=== PATIENT | male | born 1950 | race Caucasian/White ===

== ENCOUNTER 2025-04-12 17:45 | Emergency (ER) | payer MEDICARE, BC, SELFPAY ==
[2025-04-12] VITALS (8 sets, daily range): BP systolic 149–231; BP diastolic 87–118; PULSE 61–71; RESP 16–20; TEMP 36.6; O2SAT 93–97; BMI 26.5
--- OUTSIDE RECORDS SUMMARY | 2025-04-12 17:47 | XMS_ITS | Data Portability ---
Author Organization [place] [facility] Address [address] [place] [address] Assessment No assessment recorded. Plan of Treatment Reminders Order Date Submit Date Provider Last Modified By Organization Details Last Modified Time Details Appointments None recorded. Lab urinalysis, dipstick 2020 021 [facility] [address] [facility] [address], [place], [address], 12:17:54 Referral None recorded. Procedures None recorded. Surgeries cystolithol apaxy (SURG) 2020 021 [facility] Not available 11:42:13 Imaging None recorded. Medication Orders tamsulosin 0.4 mg capsule 2020 021 [facility] [address] [place] [address], [id number], 12:17:54 Patient TargetsNo targets recorded. Patient InstructionsNo instructions recorded. Reason for Referral None Reported. Results Created Date Observation Date Name Description Value Unit Range Abnormal Flag Note LastModifiedBy Organization Detail LastModifiedTime 07/21/2007/21/2021 urina lysis , dipst ick pH-Status 5.5 Not Available [facility] [address], [place], [address], 07/21/2021 11:37:26 07/21/20 21 07/21/2021 urina lysis , dipst ick Blood-Status Small Not Available [facility] [address], [place], [address], 07/21/2021 11:37:26 09/17/20 21 09/01/2021 measu remen t of post- voidi ng resid ual urine and/o r bladd er capac ity (PROC ) No observ ation record ed. [email or web address] Not Available 03/2021 10:28:11 Result Notes None recorded. Procedures Surgical History Date Name Laterality Status Provider Name and Address Organization Details Recorded Time 08/06/20 21 CYSTOLITHOLAPAXY (SURG) completed Cielo Henry [facility] 08/10/2021 11:42:19 12/18/19 21 Colonoscopy completed Aniya Hare [facility] 08/20/2021 11:27:24 Imaging Results None recorded. Procedure Notes None recorded. Medical Equipment None Reported. Allergies No known drug allergies Medications Name Sig Start Date Stop Date Status Note LastModified by Organization Details LastModified Time atorvastatin 20 mg tablet TAKE 1 TABLET BY MOUTH AT BEDTIME active Not Available Not Available No t Available chlorthalidone 25 mg tablet TAKE 1 2 (ONE HALF) TABLET BY MOUTH ONCE DAILY active Not Available Not Available No t Available sulfamethoxazol e 800 mg-trimethoprim 160 mg tablet Take 1 tablet every 12 hours by oral route. active Not Available Not Available No t Available tamsulosin 0.4 mg capsule TAKE 1 CAPSULE BY MOUTH ONCE DAILY active Not Available Not Available No t Available cephalexin 500 mg capsule TAKE 1 CAPSULE BY MOUTH TWICE DAILY FOR 7 DAYS active Not Available Not Available No t Available lisinopril 10 mg tablet TAKE 1 TABLET BY MOUTH ONCE DAILY active Not Available Not Available No t Available hydrochlorothia zide 25 mg tablet active Not Available Not Available Not Available diazepam 10 mg tablet Take 1 tablet by oral route as directed . active Not Available Not Available No t Available Vitals Date Recorded Body height Body mass index (BMI) Body weight Respiratory rate Provider Name and Address Organization Details Last Updated DateTime 07/21/2021 167.64 cm 25.8 kg/m2 39721.78 g 16 /min Josefina Byrd [facility] 07/21/2021 11:34:35 Social History Question Answer Notes LastModified by Organizat ion Details LastModified Time Tobacco Smoking Status Never Smoker Josefina Byrd [facility] 07/21/2021 11:35:59 What Was The Date Of Your Most Recent Tobacco Screening? 07/21/2021 lexus Information not available 07/21/2021 Sex: Unknown Functional Status None recorded. Mental Status None recorded. Family History Nothing Reported Notes:cardiac - father Medical History Condition Response High Blood Pressure Y Kidney Stones Y High Cholesterol Y Past Encounters Encounter ID Performer Location Encounter Start Date Encounter Closed Date Diagnosis/Indication Diagnosis SNOMED-CT Code Diagnosis ICD10 Code Diagnosis Note [id number] Gokul Viera MD [facility] [address] [facility] [address] [place] [address] 07/21/2021 10:32:37 07/21/2021 12:21:25 Urinary bladder stone 76031208 N21.0 These are likely due to BPH. We discussed laser litho of the bladder stones.We also discussed a TURP at the same time but will hold off for now and try medical management first.They have a trip to [facility] for mid August. Kidney stone 33101240 N2 0.0 To prevent stones from forming or enlarging it is recommende d to: 1) increase fluids so that urine output is at least 1.5 liters every 24 hours. 2) Add 1-2 ox of lemon juice to water daily. 3) Decrease dietary salt. Health Concerns Section Related Observation LastModified by Organization Detai ls LastModified Time None Recorded Concern Status LastModified by Organization Details LastModified Time None Recorded Advance Directives Directive None Recorded Payers Insurance Date Sequence Insurance Name Policy Number Policy Stover Covered Member ID Stover Member ID Guarantor Name 08/20/2021 1 [place] MEDICARE COST [id number] Danny Hammonds [id number] Danny Hammonds Notes Date Note Type Note Provider Name and Address Organization Details Recorded Time 07/21/2021 text/html He had seen Dr Huizar 5 years ago for kidney stones.Currently, he is having intermittent gross hematuria. This started 6 weeks ago. No pain but some sense of fullness. He has not had any prostate surgery. He has some slowness to his stream. Nocturia 2-3x. Gokul Viera MD [address] [facility],[address], [place], [address], [facility] 07/21/2021 12:18:29
--- OUTSIDE RECORDS SUMMARY | 2025-04-12 17:47 | XMS_ITS | Clinical Summary ---
Author Organization [facility] Address [address] [place] [address] Care Team Providers Care Filter Pulp Washer Name Role Phone Rangel Westfall MD Primary Care Provider [phone] Allergies No known active allergies Medications MULTIVITAMIN TAB take 1 tablet by oral route once daily with food 0 02/24/20 09 Active GLUCOSAMINE-CHONDROITIN 500 MG-400 MG CAP 2 tabs daily 0 02/24/20 09 Active tamsulosin 0.4 mg capsuleIndications:BPH without urinary obstruction Take 1 Capsule (0.4 mg) by mouth once daily after a meal. 90 Capsule 4 10/29/20 24 Active lisinopriL (PRINIVIL; ZESTRIL) 10 mg tabletIndications:HTN (hypertension) Take 1 Tablet (10 mg) by mouth once daily in the evening. 90 Tablet 4 10/29/20 24 Active atorvastatin 20 mg tabletIndications:Pure hypercholesterolemia TAKE 1 TABLET(20 MG) BY MOUTH AT BEDTIME 90 Tablet 02/01/20 25 Active chlorthalidone 25 mg tabletIndications:HTN (hypertension) TAKE 1/2 TABLET(12.5 MG) BY MOUTH DAILY IN THE MORNING 45 Tablet 02/01/20 25 Active Active Problems Problem Noted Date Diagnosed Date Sensorineural hearing loss, bilateral 05/06/2024 Tinnitus of both ears 05/01/2017 Kidney stone, L hydronephrosis 09/24/2016 Adenomatous colon polyp 11/03/2015 Overview (12/18/2020): Colonoscopy 10/2015 polyp, diverticulosis repeat in 5 years Colonoscopy 12/2020 severe diverticulosis, repeat in 10 years With propofol or CT colonography Vitamin D deficiency 04/12/2013 Arthritis of knee, left 07/26/2012 Anxiety state, unspecified 07/25/2012 HTN (hypertension) 12/26/2011 Special screening for malignant neoplasm of pros nunez 01/25/2008 Pure hypercholesterolemia 01/23/2008 Overview (02/23/2009): Elevated Triglycerides. Resolved Problems Problem Noted Date Diagnosed Date Resolved Date Personal history of other ma lignant neoplasm of skin 01/23/2008 01/25/2008 Overview (01/23/2008): Behind right ear in 1998 Encounters Date Type Department Care Team Description 01/28/2025 [facility] [address] [place] [address] Votel, Eduardo Alberto MD Refill Request (Atorvastatin, Chlorthalidone) from Last 3 Months Immunizations Immunization Administration Dates Next Due Pneumococcal Poly,23-Valent (Pneumovax) 05/04/20 18 Pneumococcal conj 13-Valent (Prevnar 13) 017 Td (Age >=7 Years) 08/23/2006 Td, Preservative Free (age >= 7 Years) 6 Tdap 08/27/2022,01/22/2013 Family History Medical History Relation Name Comments Diabetes Father 60S Heart Disease Father cabg 76 Hyperlipidemia Father Other Father of old age at 84 Allergies Mother Hypertension Mother Restless legs syndrome Mother Arthritis Sister sp knee rep Relation Name Status Comments Father Mother Alive Sister Alive Social History Tobacco Use Types Packs/Day Years Used Date Smoking Tobacco: Never Passive Smoke Exposure: Never Smokeless Tobacco: Never Tobacco Cessation:Counseling Given: Yes Alcohol Use Standard Drinks/Week Comments Not Currently 0 (1 standard drink = 0.6 oz pur e alcohol) PHQ-2 Answer Date Recorded PHQ-2 TOTAL SCORE 0 10/29/2024 Social Connections Answer Date Recorded Do you often feel lonely or isolated from those around you? 0 03/14/2024 Financial Resource Strain Answer Date R ecorded Difficulty of Paying Living Expenses 3 03/14/2024 Difficulty of Paying Living Expenses Not on file 03/14/2024 Food Insecurity Answer Date Recorded Do you worry your food will run out before you are able to buy more? 1 03/14/2024 Transportation Needs Answer Date Record ed Does lack of transportation keep you from medica l appointments? 1 03/14/2024 Does lack of transportation keep you from work, meetings or getting things that you need? 1 03/14/2024 Housing Stability Answer Date Recorded What is your housing situation today? 1 03/14/2024 Utilities Answer Date Recorded Do you have trouble paying f or utilities (for example, heat, electricity, water, phone)? 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 Not on file Not on file retired Not on file Not on file Not on file Obstetrics History Last Filed Vital Signs Vital Sign Reading Time Taken Comments Blood Pressure 143/82 10/29/2024 4:43 PM [employer] PLANT SUPER[employer]OR Pulse 72 10/29/2024 4:19 PM [employer] PLANT SUPER[employer]OR Temperature 36.9 C (98.4 F) 10/29/2024 4:19 PM [employer] SU[employer]OR Respiratory Rate 18 08/06/2021 6:45 PM CDT Oxygen Saturation 98% 10/29/2024 4:19 PM [employer] SUPER[employer]OR Inhaled Oxygen Concentration - - Weight 76.6 kg (168 lb 12.8 oz) 10/29/2024 4:19 PM [employer] PL[employer] SUPER[employer]OR Height 166 cm (5' 5.35) 10/29/2024 4:19 PM [employer] PLANT SUPER[employer]OR Body Mass Index 27.79 10/29/2024 4:19 PM [employer] SU[employer]OR Plan of Treatment Health Maintenance Due Date Last Done Comments Zoster (shingles) series for age 50+ (1 of 2) 2001 COVID-19 vaccine series ( season) 2024 Influenza Vaccine (Season Ended) 2025 BMI (ht and wt on same day) for age 18+ 10/29/2025 10/29/2024, 10/24/2023, 10/21/2022, Additional history exists Depression screening for age 12+ 10/29/2025 10/29/2024, 10/24/2023, 10/21/2022, Additional history exists Medicare Wellness for age 65+ 10/30/2025 10/29/2024, 10/24/2023, 10/21/2022, Additional history exists RSV vaccine for adults or (1 - 1-dose 75+ series) 2026 Lipids for age 45-75 11/08/2029 11/08/2024, 11/10/2023, 11/10/2023, Additional history exists Colonoscopy through age 75 12/18/203012/18, 12/18/2020, 12/18/2020, Additional history exists Tetanus booster 08/27/2032 08/27/2022, 01/11, 08/23/2006, Additional history exists Pneumococcal series for age 50+ Completed 05/04/2018, 05/01/2017 Hepatitis C screening for age 18-79 Completed 10/20/2020 Tdap Completed 08/27/2022, 01/22/2013 Hepatitis B series for 19+ Aged Out N o longer eligible based on patient's age to complete this topic Procedures Procedure Name Priority Date/Time Associated Diagnosis Comments LIPID PANEL W REFLEX MEASURED LDL Routine 11/08/2024 8:15 AM [employer] SU[employer] Pure hypercholesterolemia COLONOSCOPY SCREENING Routine 12/18/2020 9:46 AM [employer] PL[employer] SUPER[employer]OR History of colon polyps ANTI HCV Routine 10/20/2020 8:58 AM [employer] PL[employer] SUPER[employer]OR Need for hepatitis C screening test from Last 3 Months or Most Recently Relevant to Health Maintenance Results * (ABNORMAL) LIPID PANEL W REFLEX MEASURED LDL (11/08/2024 8:15 AM CITY PLANT SUPERVISOR) CHOLESTEROL, TOTAL 187 <200 mg/dL [facility] HDL CHOLESTEROL 33(L) > OR = 40 mg/dL [facility] TRIGLYCERIDES 408(H) <150 mg/dL [facility] Comment: If a non-fasting specimen was collected, consider repeat triglyceride testing on a fasting specimen if clinically indicated. Judy et al. J. of Clin. Lipidol. 2015;9:129-169. LDL-CHOLESTEROL [facility] Comment: LDL cholesterol not calculated. Triglyceride levels greater than 400 mg/dL invalidate calculated LDL results. Reference range: <100 Desirable range <100 mg/dL for primary prevention; <70 mg/dL for patients with CHD or diabetic patients with > or = 2 CHD risk factors. LDL-C is now calculated using the Tay calculation, which is a validated novel method providing better accuracy than the Friedewald equation in the estimation of LDL-C. Clarence LECHUGA et al. YAHAIRA. 2013;310(19): 0704-5690 (http://education.[employer]/faq/QUM082) CHOL/HDLC RATIO 5.7(H) <5.0 (calc) [facility] NON HDL CHOLESTEROL 154(H) <130 mg/dL (calc) [facility] Comment: For patients with diabetes plus 1 major ASCVD risk factor, treating to a non-HDL-C goal of <100 mg/dL (LDL-C of <70 mg/dL) is considered a therapeutic option. Blood BLOOD SPECIMEN / Unknown 11/08/2024 8:15 AM [employer] PLANT SUPERVISOR 11/08/2024 8:16 AM CITY PLANT SUPERVISOR Narrative [facility] - 11/09/2024 3:43 AM CITY PLANT SUPERVISOR FASTING:YES FASTING: YES us Eduardo Lawler MD CHEMISTRY Final Re sult [facility] [place] [address] [place] [address], [facility] [address] * COLONOSCOPY (12/18/2020 9:46 AM CITY PLANT SUPERVISOR) 12/18/2020 9:46 AM CITY PLANT SUPERVISOR Narrative Transcriptions Clarence Johnson MD - 12/18/2020 10:42 AM CST Patient Name: Danny Hammonds Procedure Date: 12/18/2020 Gender: Male Date of : 1950 Admit Type: Outpatient Procedure: Colonoscopy Proceduralist: Clarence Johnson MD , Siobhan Wharton RN(Nurse) Referring MD: Rangel Westfall Indications/Pre-Op Diagnosis: Last colonoscopy: October 2015 Medications: Fentanyl 150 micrograms IV, Midazolam 4 mgIV, The level of sedation administered wasmoderate Procedure Description: The patient had risks, benefits and alternatives explained to andgave informed consent. The patient had a stable cardiopulmonary status and judged an adequate candidate for conscious sedation. The [id number]-[id number] was passed through the anus and advanced tothe cecum, identified by appendiceal orifice and ileocecal valve. The colonoscopy was performed without difficulty. The patient toleratedthe procedure well. The quality of the bowel preparation was good. The ileocecal valve, appendiceal orifice, and rectum were photographed. Complications: No immediate complications. Estimated Blood Loss & Specimen: Estimated blood loss: none. Specimen collected - None Findings: The perianal and digital rectal examinations were normal. Multiple small and large-mouthed diverticula were found in thesigmoid colon and descending colon. There was narrowing of the colon in association with the diverticular opening. Sharp angulation of thebowel at 20 cm that was very dificult to pass. The exam was otherwise without abnormality on direct and retroflexion views. Impressions/Post-Op Diagnosis: - Severe diverticulosis in the sigmoid colon and in the descending colon. There was narrowing of the colon in association with the diverticular opening. - The examination was otherwise normal on direct and retroflexionviews. - No specimens collected. Recommendation: - Patient has a contact number available for emergencies. The signsand symptoms of potential delayed complications were discussed with the patient. Return to normal activities tomorrow. Written discharge instructions were provided to the patient. - Resume previous diet. - Continue present medications. - Repeat colonoscopy in 10 years for surveillance vs CT colonography given severe diverticular disease. - Patient's sedation for a repeat study will require Anesthesia staff assistance. Moderate Sedation: Moderate (conscious) sedation was administered by the endoscopy nurse and supervised by the endoscopist. The following parameters were monitored: oxygen saturation, heart rate, respiratory rate, blood pressure, adequacy of pulmonary ventilation and reponse to care. Please refer to the patient's medical record flowsheets and nursing notes for moderate sedation details. Total physician intraservice time was 22 minutes. Clarence Johnson MD 12/18/2020 10:41:59 AM This report has been signed electronically. Note Initiated On: 12/18/2020 9:46 AM Procedure Code(s): --- Professional --- 68138, Colonoscopy, flexible; diagnostic, including collection of specimen(s) bybrushing or washing, when performed (separateprocedure) Diagnosis Code(s): --- Professional --- K57.30, Diverticulosis of large intestine without perforation or abscess withoutbleeding CPT copyright 2019 [employer]. All rights reserved. The codes documented in this report are preliminary and upon librarian specialist reviewmay be revised to meet current compliance requirements. Scope In: 10:12:42 AM Scope Withdrawal Time 0 hours 7 minutes 34 seconds Scope Out: 10:32:58 AM us Clarence Johnson MD PROCEDURE ORD Final Res ult * ANTI HCV (10/20/2020 8:58 AM CITY PLANT SUPERVISOR) HEPATITIS C ANTIBODY Non-React sami Non-React sami 10/20/2020 3:50 PM CITY PLANT SUPERVISOR [facility] Comment:Antibodies to HCV no t detected; does not exclude the possibility of exposure to HCV. Blood BLOOD SPECIMEN / Unknown Venipuncture / Unknown 10/20/2020 8:58 AM CITY PLANT SUPERVISOR 10/20/2020 8:58 AM CITY PLANT SUPERVISOR Rangel Westfall MD SEND OUTS Final [facility]u lt [facility] [address] [place] [address], from Last 3 Months or Most Recently Relevant to Health Maintenance Insurance [place] MR [place] ONLY [place] ONLY MEDICARE PART B HB ONLY MEDICARE PART A HB ONLY Advance Directives * Full Code (Latest Code Status on File) Date Activated Date Inactivated Comments 08/06/2021 11:46 AM 08/06/2021 10:04 PM Question Answer Comments Code Status Discussion: Not Discussed * Full Code Date Activated Date Inactivated Comments 09/24/2016 3:48 PM 09/26/2016 1:24 PM * Full Code Date Activated Date Inactivated Comments 09/21/2016 12:29 PM 09/21/2016 7:42 PM Care Teams Filter Pulp Washer Relationship Specialty Start Date End Date Rangel [place] [address] [address] [place] [address] PCP - General 08/07/06
--- NOTE | 2025-04-12 18:00 | CRLHL7_ITS ---
For Patients: As a result of the Century Cures Act, medical imaging exams and procedure reports are released immediately into your electronic medical record. You may view this report before your referring provider. If you have questions, please contact your health care provider. INDICATION: Flank pain. Evaluate for kidney stone. TECHNIQUE: Multiplanar CT examination of the abdomen and pelvis was performed without the use of intravenous contrast, renal stone protocol. COMPARISON: None. FINDINGS: Limited evaluation of the soft tissue organs without the use of intravenous contrast. Lower chest: No focal consolidation. Normal heart size. No pleural effusions or pneumothorax. Hiatal hernia. Subsegmental and dependent atelectasis. Liver: Unremarkable. Gallbladder: Cholelithiasis without gallbladder wall thickening or pericholecystic edema. Biliary: Unremarkable. Pancreas: Within normal limits. Spleen: Unremarkable. Adrenal glands: Unremarkable. Renal/ureters/bladder: Kidneys are normal in size. Mild right-sided hydronephrosis due to the obstructing 5 mm proximal ureteral calculus. No left-sided obstructive uropathy. The ureters appear unremarkable. The bladder is within normal limits. Pelvis: Prostatomegaly. Intraprostatic cystic lesion, poorly characterized on CT. Gastrointestinal: No bowel wall thickening or bowel obstruction. Normal appendix. Mild diverticulosis. Herniation of several loops of nonobstructed small bowel into the left inguinal hernia defect. Mild colonic stool burden. Vasculature: No aortic aneurysm. No significant atherosclerotic calcifications. Lymph nodes: No pathologic lymphadenopathy by size criteria. Peritoneum: No free fluid or pneumoperitoneum. No drainable fluid collections. Abdominal wall/soft tissues: Small left inguinal hernia containing loops of nonobstructed small bowel. Bones: No acute osseous abnormalities. Multilevel degenerative changes of the visualized thoracolumbar spine. IMPRESSION: 1. Right-sided hydronephrosis due to obstructing 5 mm urinary calculus within the proximal right ureter. 2. Prostatomegaly. 3. Small left inguinal hernia containing loops of nonobstructed small bowel. No bowel obstruction. Please note that all CT scans at this facility use dose modulation, iterative reconstruction, and/or weight-based dosing when appropriate to reduce radiation dose to as low as reasonably achievable. Dictated by Harvey Villalta MD @ 04/12/2025 8:48:28 PM (Electronically Signed)
--- NOTE | 2025-04-12 18:01 | ED.GENADULT ---
HPI - General Adult General Chief complaint: Flank Pain Stated complaint: kidney stones Time Seen by Provider: 04/12/25 17:48 History of Present Illness HPI narrative: This 74-year-old male comes in reporting right flank pain and is suspicious of and passing another kidney stone. He states that he has had 6 or 8 such episodes in the past. His symptoms began yesterday and he has had some nausea but no vomiting. He does not report any fever or dysuria symptoms. Related Data Home Medications ?Medication ?Instructions ?Recorded ?Confirmed atorvastatin 20 mg tablet 20 mg PO DAILY 04/12/25 04/12/25 chlorthalidone 25 mg tablet PO 04/12/25 lisinopril 10 mg tablet 10 mg PO DAILY 04/12/25 04/12/25 tamsulosin 0.4 mg capsule mg PO DAILY 04/12/25 Previous Rx's ?Medication ?Instructions ?Recorded ketorolac 10 mg tablet 10 mg PO TID 5 days #15 tabs 04/12/25 Allergies Allergy/AdvReac Type Severity Reaction Status Date / Time No Known Drug Allergies Allergy Verified 04/12/25 17:52 Review of Systems Status of ROS: Reports: 10 or more systems reviewed and unremarkable except as noted in History and below Narrative: Constitutional: No fevers, no weight gain or loss. Eyes: No discharge. No vision changes. HENT: No congestion, no sore throat, no ear pain. Cardiovascular: No chest pain, no palpitations. Respiratory: No shortness of breath, no wheezes, no cough. Gastrointestinal: No abdominal pain, no vomiting, no diarrhea. Right flank pain. Genitourinary: No dysuria, no hematuria. Musculoskeletal: Normal range of motion. Skin: No rashes, no pruritis. Neurological: No dizziness, weakness, sensory change, speech change. Endo/Heme/Allergies: No bruising or bleeding. No polydipsia. Pysch: no suicidality, no anxiety, no insomnia. All other systems reviewed and are negative. Exam Narrative: Exam Narrative: Constitutional: Well-developed, well-nourished, no acute distress. HEENT: Normocephalic, atraumatic. Neck: Normal range of motion. Nontender. Supple. Heart: Regular. No murmurs. Normal rate. Intact distal pulses. Lungs: Clear to auscultation. No chest discomfort. No wheezes, rhonchi, or rales. Abdomen: Normal bowel sounds. Nontender. No rebound tenderness. Right flank pain. Genitalia: Deferred. Back: No midline tenderness. Normal range of motion. Extremities: Normal range of motion. No injury. Skin: Intact. No rash. Warm. No erythema or pallor. Neurologic: No altered sensation. No weakness. Alert and oriented. Psychiatric: No suicidality. No anxiety or depression. No insomnia. Nursing notes and vitals signs are reviewed. Const: Vital Signs, click to edit/add: Vital Signs - 24 hr 04/12/25 17:50 04/12/25 18:02 04/12/25 18:12 Temperature 97.9 F Pulse Rate 61 61 Pulse Rate [Pulse Oximeter] 67 Respiratory Rate 20 Blood Pressure 186/91 H Blood Pressure [Ri ght Upper Arm] 231/118 H Pulse Oximetry 97 96 95 Oxygen Delivery Me thod Room Air 04/12/25 18:15 04/12/25 18:15 04/12/25 18:30 Temperature Pulse Rate 61 64 Pulse Rate [Pulse Oximeter] Respiratory Rate Blood Pressure Blood Pressure [Ri ght Upper Arm] Pulse Oximetry 95 96 94 Oxygen Delivery Me thod 04/12/25 18:32 04/12/25 19:03 04/12/25 19:04 Temperature Pulse Rate 62 71 67 Pulse Rate [Pulse Oximeter] Respiratory Rate 16 Blood Pressure 149/87 H 161/89 H Blood Pressure [Ri ght Upper Arm] Pulse Oximetry 94 94 93 Oxygen Delivery Me thod Course Vital Signs Vital signs: Initial Vital Signs Temperature 97.9 F 04/12/25 17:50 Temperature Source Temporal Artery Scan 04/12/25 17:50 Pulse Rate 67 04/12/25 17:50 Respiratory Rate 20 04/12/25 17:50 Blood Pressure 231/118 H 04/12/25 17:50 Blood Pressure Mean 155 H 04/12/25 17:50 Blood Pressure Position Sitting 04/12/25 17:50 Pulse Oximetry 97 04/12/25 17:50 Oxygen Delivery Method Room Air 04/12/25 17:50 Vital Signs Temperature 97.9 F 04/12/25 17:50 Pulse Rate 67 04/12/25 17:50 Respiratory Rate 20 04/12/25 17:50 Blood Pressure 231/118 H 04/12/25 17:50 Pulse Oximetry 97 04/12/25 17:50 Oxygen Delivery Method Room Air 04/12/25 17:50 Temperature 97.9 F 04/12/25 17:50 Pulse Rate 67 04/12/25 19:04 Respiratory Rate 16 04/12/25 19:04 Blood Pressure 161/89 H 04/12/25 19:04 Pulse Oximetry 93 04/12/25 19:04 Oxygen Delivery Method Room Air 04/12/25 17:50 Medications Administered Medications: Discontinued Medications Generic Name Dose Route Start Last Admin Trade Name Tej PRN Reason Stop Dose Admin Hydromorphone HCl 0.5 mg 04/12/25 18:00 04/12/25 18:06 Hydromorphone 0.5 Mg/0.5 Ml Inj IVP 04/12/25 18:01 0.5 mg ONCE ONE Administration Ketorolac Tromethamine 30 mg 04/12/25 18:00 04/12/25 18:06 Ketorolac 30 Mg/Ml Inj IVP 04/12/25 18:01 30 mg ONCE ONE Administration Ondansetron HCl 4 mg 04/12/25 18:00 04/12/25 18:06 Ondansetron 2 Mg/Ml Inj IVP 04/12/25 18:01 4 mg ONCE ONE Administration Medical Decision Making MDM Narrative Medical decision making narrative: This 74-year-old male comes in with right flank pain and reports a history of recurrent kidney stones. His symptoms are similar to previous events. An IV was established where he received Toradol and Dilaudid with Zofran and this brought good relief to his symptoms. CT imaging of his abdomen and pelvis by my review does show a large stone in the left kidney that is nonobstructive and a average size stone in the mid right ureter with some dilated ureter upstream. Urinalysis shows hematuria but no sign of infection. The patient is okay to be discharged home and did receive [facility] prescriptions for [place] and Zofran and a prescription for Toradol from his preferred pharmacy. Lab Data Labs: Lab Results 04/12/25 Range/Units Unknown Urine Color Yellow (Yellow) Urine Appearance Clear (Clear) Urine pH 6.0 (5.0-8.5) Ur Specific [place] >= 1.030 (1.000-1.030) Urine Protein 2+ A (Negative) Urine Glucose (UA) Negative (Negative) Urine Ketones Negative (Negative) Urine Blood 3+ A (Negative) Urine Nitrite Negative (Negative) Urine Bilirubin Negative (Negative) Urine Urobilinogen 0.2 (0.2-1.0) Ur Leukocyte Esterase Negative (Negative) Urine RBC >100 A (0-2) Urine WBC 2-5 (0-5) Ur Squamous Epith Cells None (None-Few) Urine Bacteria Few A (None) Discharge Plan Discharge Clinical Impression: Calculus, ureteral Patient Disposition: Home, Self-Care Condition: Improved Additional Instructions: Take medications as needed and directed. Follow up with MD return if symptoms are persistent or worsening. Prescriptions: New ketorolac 10 mg tablet 10 mg PO TID 5 Days Qty: 15 0RF No Action atorvastatin 20 mg tablet 20 mg PO DAILY chlorthalidone 25 mg tablet PO tamsulosin 0.4 mg capsule PO DAILY lisinopril 10 mg tablet 10 mg PO DAILY Follow Up/Referrals: Rangel Westfall MD [Primary Care Provider, Family Practice] Stand Alone Forms: [employer] Info Instructions
[2025-04-12] MEDS: ONDANSETRON 2 MG/ML inj 4 MG IVP (18:06)
[2025-04-12] MEDS: HYDROmorphone 0.5 mg/0.5 ml inj IVP (18:06)
[2025-04-12] MEDS: KETOROLAC 30 MG/ML inj IVP (18:06)
[2025-04-12 19:00] LABS: Appearance Urine Clear (Clear); Bilirubin Urine Negative (Negative); Blood Urine 3+ (Negative); Color Urine Yellow (Yellow); Glucose Urine Negative (Negative); Ketones Urine Negative (Negative); Leukocyte Esterase Urine Negative (Negative); Nitrite Urine Negative (Negative); Protein Urine 2+ (Negative); Specific Gravity Urine >= 1.030 (1.000-1.030); Urobilinogen Urine 0.2 (0.2-1.0)
[2025-04-12 19:06] LABS: Bacteria Urine Few; RBC Urine >100 (0-2)
== END 2025-04-12 20:32 | disposition home or self-care (01) ==
PROVIDERS: Emergency Provider Emergency Medicine Emergency Medical Services; PCP Family Medicine
DX: N20.1 Calculus of ureter (principal)
CPT/HCPCS: 74176; 81001; 87086; 94761; 96374; 96375; 99284; J1171; J1885; J2405

== ENCOUNTER 2025-08-14 11:15 | Outpatient (RCR) | payer MEDICARE, BC, SELFPAY | END 2025-08-15 17:29 | disposition home or self-care (01) | PROVIDERS: PCP Family Medicine; Visit Provider Chiropractor | DX: M25.511 Pain in right shoulder (principal); M75.21 Bicipital tendinitis, right shoulder; M79.10 Myalgia, unspecified site; Z51.89 Encounter for other specified aftercare | CPT/HCPCS: 97110; 97112; 97140; 97161 ==